=== PATIENT | female | born 1950 | race Caucasian/White ===

== ENCOUNTER 2017-02-13 15:32 | Outpatient (CLI) | payer OTHER ==
--- NOTE | 2017-02-14 17:35 | Mammography Report ---
DIGITAL SCREENING MAMMOGRAM: 02/13/2017 CLINICAL INDICATION: A 66-year-old with family history of breast cancer, history of benign right jennifer ast biopsy for screening. COMPARISON: 01/2016, 12/2014, 04/2013, 04/2012, 10/2010, 08/2009, 02/2008, 02/2007. TECHNIQUE: Routine CC and MLO projections were obtained of the breasts as well as bilateral laterall y exaggerated craniocaudal views. FINDINGS: The breasts demonstrate heterogeneously dense fibroglandular parenchyma bilaterally. Post operative changes in the right breast are stable. Coarse and punctate, typically benign calcificatio ns are present. No suspicious masses, clustered microcalcifications, or regions of architectural dis tortion are identified. IMPRESSION: BENIGN FINDINGS. RECOMMENDATION: Routine annual screening unless otherwise clinically indicated. BI-RADS category 2, benign findings. STANDARD QUALIFYING STATEMENTS 1. This examination was reviewed with the aid of Computer-Aided Detection (CAD). 2. A negative or benign imaging report should not delay biopsy if clinically suspicious findings are present. Consider surgical consultation if warranted. More than 5% of cancers are not identified by i maging. 3. Dense breasts may obscure an underlying neoplasm. JOB #: [id number] EXT JOB #:[id number]
== END 2017-02-13 15:33 | disposition home or self-care (01) ==
LOC: DI.S 15:32
PROVIDERS: ATTEND Physician Assistant
DX: Z12.31 Encounter for screening mammogram for malignant neoplasm of breast (principal); Z80.3 Family history of malignant neoplasm of breast
CPT/HCPCS: 77067

== ENCOUNTER 2017-02-18 14:47 | Outpatient (CLI) | payer OTHER ==
--- NOTE | 2017-02-18 16:14 | CT Report ---
CT OF THE ABDOMEN AND PELVIS WITHOUT CONTRAST: 02/18/2017 CLINICAL INDICATION: Generalized swelling, blood in stool, bloating. TECHNIQUE: Axial CT images of the abdomen and pelvis were obtained without oral or intravenous contra st. No previous CT is available for comparison. FINDINGS: Limited evaluation of the lung bases is unremarkable. ABDOMEN: Allowing for the lack of contrast, the liver, spleen, pancreas, kidneys and adrenal glands a ppear unremarkable. The gallbladder is not dilated. No bowel dilatation, free gas, or free fluid is p resent. No abdominal adenopathy is appreciated. PELVIS: The appendix is seen in the right lower quadrant, and is normal in caliber. No pelvic adenopa thy or free fluid is present. The pelvic organs appear unremarkable. The osseous structures demonstrate degenerative changes. IMPRESSION: NO EVIDENT ETIOLOGY FOR PATIENT'S SYMPTOMS ON THIS NONCONTRAST EXAMINATION. In accordance with CT protocol optimization, one or more of the following dose reduction techniques w ere utilized for this exam: automated exposure control, adjustment of mA and/or KV based on patient size, or use of iterative reconstructive technique. JOB #: [id number] EXT JOB #:[id number]
== END 2017-02-18 14:48 | disposition home or self-care (01) ==
LOC: DI 14:47
PROVIDERS: ATTEND Nurse Practitioner Family
DX: R10.9 Unspecified abdominal pain (principal); K92.1 Melena; R19.07 Generalized intra-abdominal and pelvic swelling, mass and lump
CPT/HCPCS: 74176

== ENCOUNTER 2017-02-19 13:45 | Outpatient (CLI) | payer OTHER | END 2017-02-19 13:46 | disposition home or self-care (01) | LOC: RT.S 13:45 | PROVIDERS: ATTEND Physician Assistant | DX: R00.2 Palpitations (principal) | CPT/HCPCS: 93005 ==

== ENCOUNTER 2017-06-05 13:22 | Day surgery (SDC) | payer MEDICARE ==
[2017-06-05] MEDS ORDERED: LACTATED RINGERS 1,000 ML IV ONE (13:55)
[2017-06-05] MEDS ORDERED: fentaNYL 100 MCG/2 ML VIAL IVP ONE (14:44)
[2017-06-05] MEDS ORDERED: ONDANSETRON 4 MG/2 ML VIAL IVP ONE (14:44)
[2017-06-05] MEDS ORDERED: MIDAZOLAM 2 MG/2 ML VIAL IVP ONE (14:44)
[2017-06-05 15:27] VITALS: BP 113/63
== END 2017-06-05 13:23 | disposition home or self-care (01) ==
LOC: SDS 13:22
PROVIDERS: ATTEND Internal Medicine Gastroenterology
PROC: 0DBP8ZX Excision of Rectum, Via Natural or Artificial Opening Endoscopic, Diagnostic (ICD-10-PCS; principal; 2017-06-05 14:30)
DX: K51.20 Ulcerative (chronic) proctitis without complications (principal); Z86.010 Personal history of colon polyps; R19.7 Diarrhea, unspecified; R14.0 Abdominal distension (gaseous); Z80.0 Family history of malignant neoplasm of digestive organs
CPT/HCPCS: 45380; 88305; J7120

== ENCOUNTER 2017-06-19 13:26 | Outpatient (CLI) | payer MEDICARE ==
--- NOTE | 2017-06-20 10:14 | DEXA Report ---
DEXA: 06/19/2017 CLINICAL INDICATION: Osteopenia. TECHNIQUE: Dual energy x-ray absorptiometry (DXA) was performed on a [employer] system. Regions measured are the AP spine, femoral neck, and, if needed, forearm. COMPARISON: None. In accordance with the International Society for Clinical Densitometry (ISCD) guidelines, data from previous exams may be reanalyzed using current recommendations and techniques. This is done to allow a more accurate basis for comparison with the current study. FINDINGS LUMBAR SPINE DATA: REGION BMD (g/cm/cm) T-SCORE Z-SCORE L1 1.131 0.0 1.8 L2 1.178 -0.2 1.7 L3 1.150 -0.4 1.4 L4 1.198 0.0 1.8 TOTAL 1.170 -0.1 1.8 NOTE: All evaluable vertebrae are used for classification. HIP DATA: REGION BMD (g/cm/cm) T-SCORE Z-SCORE Neck 0.864 -1.2 0.5 TOTAL 0.987 -0.2 1.3 NOTE: The femoral neck or total proximal femur, whichever is lowest, is used for classification. IMPRESSION THE WHO CLASSIFICATION BASED ON THE INTERNATIONAL REFERENCE STANDARD: OSTEOPENIA (REFERENCE LEFT FEMORAL NECK). FRACTURE RISK: INCREASED. RECOMMENDATION: Patients with diagnosis of osteoporosis or osteopenia should have regular bone mineral density assessment. For those eligible for Medicare, routine testing is allowed once every 2 years. Testing frequency can be increased for patients who have rapidly progressing disease or for those who are receiving medical therapy to restore bone mass. COMMENT: World Health Organization (WHO) definitions for osteoporosis and osteopenia: NORMAL BMD: T-score at -1.0 or higher, fracture risk is low. OSTEOPENIA BMD: T-score between -1.0 and -2.5, fracture risk is increased. OSTEOPOROSIS BMD: T-score at -2.5 or lower, fracture risk high. National Osteoporosis Foundation recommends: 1. Obtain adequate dietary calcium (at least 1200 mg per day) and vitamin D (400 -800 international units per day). 2. Participate, as appropriate, in regular weightbearing and muscle- strengthening exercise. 3. Avoid tobacco use and reduce alcohol and caffeine intake. 4. For more detailed information see the website at www.NOF.org. MTDD
== END 2017-06-19 13:27 | disposition home or self-care (01) ==
LOC: DI 13:26
PROVIDERS: ATTEND Physician Assistant
DX: M85.88 Other specified disorders of bone density and structure, other site (principal)
CPT/HCPCS: 77080

== ENCOUNTER 2017-07-01 12:59 | Outpatient (CLI) | payer MEDICARE ==
[~2017-07-01 12:59] MED LIST: GADOBUTROL 7.5 MMOL/7.5 ML VIAL ONE
[2017-07-01 13:25] LABS: CREATININE 0.7 mg/dL (0.4-1.0)
[2017-07-01] MEDS ORDERED: GADOBUTROL 7.5 MMOL/7.5 ML VIAL IVP ONE (14:36)
--- NOTE | 2017-07-03 15:07 | MRI Report ---
MR BILATERAL BREASTS WITH AND WITHOUT CONTRAST: 07/01/2017 CLINICAL INDICATION: Strong family history of breast cancer, with multiple first degree relatives with breast cancer, history of benign biopsy. COMPARISON: MRI 12/16/2015, MRI 11/02/2014, mammogram 02/13/2017. TECHNIQUE: Using a dedicated breast coil, axial precontrast STIR, T1, dynamic postcontrast axial 3-D images, axial 3-D high resolution images, and postcontrast diffusion weighted images were obtained. Six mL of Gadavist was administered intravenously. Post-processing with dynamic contrast enhancement analysis and multiplanar reformations were performed with Clio. FINDINGS: The breasts again demonstrate heterogeneously dense glandular tissue. Minimal scattered background enhancement is again noted. RIGHT BREAST: Post-biopsy changes in the upper inner quadrant are stable. No suspicious mass, non-mass like enhancement, architectural distortion, or skin thickening is identified. No pathologically enlarged lymph nodes are seen. LEFT BREAST: No suspicious mass, non-mass like enhancement, architectural distortion, or skin thickening is identified. No pathologically enlarged lymph nodes are identified. IMPRESSION: Benign findings. RECOMMENDATIONS: Continued annual screening mammography and surveillance MRI alternating every 6 months. BI RADS category 2. Benign findings. The patient has been instructed to obtain results from Galina Arellano PA-C in 5 business days. COMMENT: Breast MRI is a highly sensitive examination, and has a cancer detection threshold down to approximately 5 mm; however, it only has moderate specificity. Although breast MRI has a high negative predictive value, appropriate clinical and mammographic followup are always necessary. MRI may miss less angiogenic tumors; therefore, it should not be used to avoid a biopsy which is otherwise clinically indicated. Normal appearing lymph nodes may contain microscopic tumor. Due to prone positioning, the described location of findings may differ from other modalities. TD: 07/02/2017 16:17 FARTUN
== END 2017-07-01 13:00 | disposition home or self-care (01) ==
LOC: LAB 12:59
PROVIDERS: ATTEND Physician Assistant
DX: Z80.3 Family history of malignant neoplasm of breast (principal)
CPT/HCPCS: 36415; 82565; A9585; C8908; 77059

== ENCOUNTER 2017-11-28 15:54 | Outpatient (CLI) | payer MEDICARE ==
--- NOTE | 2017-11-29 10:10 | XRAY Report ---
RIGHT KNEE X-RAY: 11/28/2017 COMPARISON: No comparison. INDICATION: Right knee pain. TECHNIQUE: 3 views. FINDINGS: Normal alignment. No evidence of acute fracture. No effusion. No degenerative changes. IMPRESSION: NEGATIVE KNEE. TD: 11/29/2017 10:10 MTDD
== END 2017-11-28 15:55 | disposition home or self-care (01) ==
LOC: DI.S 15:54
PROVIDERS: ATTEND Nurse Practitioner Family
DX: M25.561 Pain in right knee (principal); M25.461 Effusion, right knee

== ENCOUNTER 2018-10-31 12:21 | Outpatient (CLI) | payer OTHER ==
[2018-10-31] MEDS ORDERED: GADOBUTROL 10 MMOL/10 ML VIAL ONE (12:33)
[2018-10-31] MEDS ORDERED: GADOBUTROL 10 MMOL/10 ML VIAL IVP ONE (13:36)
--- NOTE | 2018-11-03 12:13 | MRI Report ---
Reason: SCREENING FOR BREAST CA Procedure Date: 10/31/2018 Accession Number: [id number] / [id number] Procedure: MRI - Breast W/WO Cont CPT Code: 12170 FULL RESULT: EXAM: Breast W/WO Cont DATE: 10/31/2018 1:25 PM CLINICAL HISTORY: High-risk breast cancer screening. Patient family history of breast cancer. Both sisters and a niece. COMPARISON: 07/01/2017 and 12/16/2015. TECHNIQUE: Axial - precontrast STIR Axial - postcontrast sequential 1 minute three-dimensional (x 5) Axial - high-resolution volumetric images. Axial -diffusion weighted imaging CONTRAST USED: 6 mL Gadavist (gadolinium). POSTPROCESSING: Subtraction dynamic/curve analysis and multiplanar reformations with CAD stream FINDINGS: Minimal scattered background enhancement is again noted bilaterally. RIGHT BREAST: Post-biopsy changes in the upper inner quadrant are redemonstrated. No suspicious mass, non- mass like enhancement, architectural distortion, or skin thickening is identified. No pathologically enlarged lymph nodes are seen. LEFT BREAST: No suspicious mass, non-mass like enhancement, architectural distortion, or skin thickening is identified. No pathologically enlarged lymph nodes are identified. IMPRESSION: Benign findings. RECOMMENDATIONS: Continued annual screening mammography and surveillance MRI alternating every 6 months. BIRADS category 2. Benign findings. COMMENT: The literature indicates that a negative dynamic breast MRI has a high sensitivity and specificity for the detection of invasive carcinoma (to a threshold of 5 mm). MRI is not reliably sensitive for detecting ductal carcinoma in situ or large invasive neoplasms with only minimal enhancement (i.e. mucinous carcinoma). Normal-appearing lymph nodes on MRI may contain microscopic tumor. Appropriate clinical mammographic and sonographic followup should be performed if recommended. Negative MRI should not dissuade further evaluation of any suspicious mammographic calcifications and/or worrisome palpable masses.
== END 2018-10-31 12:22 | disposition home or self-care (01) ==
LOC: DI 12:21
PROVIDERS: ATTEND Physician Assistant
DX: Z12.31 Encounter for screening mammogram for malignant neoplasm of breast (principal); Z80.3 Family history of malignant neoplasm of breast
CPT/HCPCS: 77049; A9585

== ENCOUNTER 2019-05-19 13:29 | Outpatient (CLI) | payer OTHER ==
--- NOTE | 2019-05-19 14:24 | Mammography Report ---
Reason: SCREENING MAMMO Procedure Date: 05/19/2019 Accession Number: [id number] / [id number] Procedure: MGS - Screening Mammo Dig Bilat CPT Code: FULL RESULT: EXAM: Screening Mammo Dig Bilat DATE: 05/19/2019 2:03 PM CLINICAL HISTORY: Routine screening. History of right breast biopsy. TECHNIQUE: (B) - Bilateral CC and MLO views were obtained. COMPARISON: 02/13/2017, 02/14/2016, 12/22/2014, 05/20/2013 PARENCHYMAL PATTERN: (VD) - The breasts demonstrate extremely dense parenchyma bilaterally, limiting the sensitivity of mammography. FINDINGS: No significant interval change on the right. There are no suspicious masses, calcifications, or areas of distortion. On the left there is a possible area of developing architectural distortion in the posterior lateral breast seen on the CC projection only. No suspicious calcifications or dominant mass left breast. IMPRESSION: Incomplete examination. BI-RADS category 0. Needs CC spot compression and true lateral view left breast with possible ultrasound. Negative right breast. RECOMMENDATION: (ADDMAM) - Recommend additional mammographic views. Possible ultrasound depending on the additional mammographic imaging. BI-RADS CATEGORY: (0) - Incomplete Examination - need additional evaluation. STANDARD QUALIFYING STATEMENTS: 1. This examination was not reviewed with the aid of Computer-Aided Detection (CAD). 2. A negative or benign imaging report should not preclude biopsy if clinically suspicious findings are present. 3. Dense breasts may obscure an underlying neoplasm. 4. This examination was reviewed without the aid of 3D breast imaging (tomosynthesis).
== END 2019-05-19 13:30 | disposition home or self-care (01) ==
LOC: DI.S 13:29
DX: Z12.31 Encounter for screening mammogram for malignant neoplasm of breast (principal); R92.8 Other abnormal and inconclusive findings on diagnostic imaging of breast
CPT/HCPCS: 77067

== ENCOUNTER 2019-06-02 10:01 | Outpatient (CLI) | payer MEDICARE ==
--- NOTE | 2019-06-02 11:12 | Mammography Report ---
Reason: ABN MAMMO - LT SPEC VIEWS Procedure Date: 06/02/2019 Accession Number: [id number] / [id number] Procedure: VIOLETTA - Diag Special Views Dig LT CPT Code: Final Report FULL RESULT: EXAM: Diag Special Views Dig LT DATE: 06/02/2019 10:25 AM CLINICAL HISTORY: Recall from recent screening for possible left breast distortion single view. Family history breast cancer in sister age 38 and maternal aunt age 68. TECHNIQUE: (L) - Left CC and ML views were obtained. COMPARISON: 05/19/2019 through 11/10/2010. PARENCHYMAL PATTERN: (VD) - The breasts demonstrate extremely dense parenchyma bilaterally, limiting the sensitivity of mammography. FINDINGS: Left breast: One view possible distortion recalled from screening posterior lateral breast does not persist on additional views consistent with summation of normal tissues. Area returns to baseline appearance compared earlier mammograms. There are no suspicious masses, calcifications, or areas of distortion. IMPRESSION: Left breast: Finding recalled from screening consistent with summation of normal tissues. Negative examination. BI-RADS category 1. Recommend return to annual screening mammography. RECOMMENDATION: (ANNUAL) - Recommend routine annual screening mammography. BI-RADS CATEGORY: (1) - Negative. STANDARD QUALIFYING STATEMENTS: 1. This examination was not reviewed with the aid of Computer-Aided Detection (CAD). 2. A negative or benign imaging report should not preclude biopsy if clinically suspicious findings are present. 3. Dense breasts may obscure an underlying neoplasm. 4. This examination was reviewed with the aid of 3D breast imaging (tomosynthesis).
== END 2019-06-02 10:02 | disposition home or self-care (01) ==
LOC: DI 10:01
PROVIDERS: ATTEND Physician Assistant
DX: R92.8 Other abnormal and inconclusive findings on diagnostic imaging of breast (principal); Z80.3 Family history of malignant neoplasm of breast

== ENCOUNTER 2019-06-17 13:11 | Outpatient (CLI) | payer MEDICARE ==
--- NOTE | 2019-06-19 08:31 | XRAY Report ---
Reason: NECK PAIN Procedure Date: 06/17/2019 Accession Number: [id number] / [id number] Procedure: XRS - Cervical Spine 2 View CPT Code: Final Report FULL RESULT: EXAM: CERVICAL SPINE RADIOGRAPHY EXAM DATE: 06/17/2019 01:27 PM. CLINICAL HISTORY: NECK PAIN. COMPARISONS: None. TECHNIQUE: 3 views. FINDINGS: Alignment: Grade 1 C3 on C4 and C4 on C5 anterolisthesis. Loss of the normal cervical lordosis is noted. Bones: The cervical vertebral bodies and posterior elements are well visualized from the skull base through C7-T1. No fractures or bone lesions. Disks: Moderate C5-C6 disk narrowing. Facets: Facet arthropathy most severe at the left C3-C4 and C4-C5 levels. Soft Tissues: Normal. No prevertebral soft tissue swelling. The visualized lung apices are clear. IMPRESSION: 1. Grade 1 C3 on C4 and C4 on C5 anterolisthesis likely degenerative in origin. Loss of the normal cervical lordosis. 2. No acute fracture. 3. Multilevel degenerative disk disease and facet arthropathy. See above. RADIA
== END 2019-06-17 13:12 | disposition home or self-care (01) ==
LOC: DI.S 13:11
PROVIDERS: ATTEND Nurse Practitioner Family
DX: M50.322 Other cervical disc degeneration at C5-C6 level (principal); M47.812 Spondylosis without myelopathy or radiculopathy, cervical region; M43.12 Spondylolisthesis, cervical region
CPT/HCPCS: 72040

== ENCOUNTER 2019-06-24 16:31 | Outpatient (CLI) | payer MEDICARE ==
--- NOTE | 2019-06-25 12:15 | MRI Report ---
Reason: CERVICALGIA Procedure Date: 06/24/2019 Accession Number: [id number] / [id number] Procedure: MRI - Cervical Spine W/O CPT Code: Final Report FULL RESULT: EXAM: MRI CERVICAL SPINE WITHOUT CONTRAST EXAM DATE: 06/24/2019 05:15 PM. CLINICAL HISTORY: Cervicalgia. Pain along the left side of the neck that moves into the left shoulder. COMPARISONS: CERVICAL SPINE 2 VIEW 06/17/2019 1:19 PM. TECHNIQUE: Multiplanar, multisequence T1-weighted and fluid-sensitive sequences of the cervical spine without contrast. Other: None. FINDINGS: Neurologic Structures: The visualized posterior fossa structures are unremarkable. No signal abnormality in the visualized spinal cord. The spinal canal is adequate. Alignment: Mild, 2 mm, retrolisthesis is seen at C5-C6. Mild, 2.5 mm, spondylolisthesis is seen at C7-T1. Bone Marrow: Moderate bone marrow edema is seen involving left C4-C5 facet processes. No abnormal joint space fluid is seen. Adjacent paraspinous edema is seen without a fluid collection. Mild bone marrow edema is seen involving bilateral C7-T1 facet processes. Interspace Levels/Facets: C1-C2: Unremarkable. C2-C3: Unremarkable. Mild left-sided degenerative facet change. C3-C4: Unremarkable. Mild degenerative facet change is seen bilaterally. Trace amount of fluid is seen in the left facet joint. C4-C5: Left-sided hypertrophic degenerative facet change is seen. Bone marrow and paraspinous edema is noted. Mild left foraminal stenosis. C5-C6: Mild loss of disk space height. Mild retrolisthesis. Minimal dorsal disk bulge. Left-sided degenerative uncovertebral change. Mild broad-based ventral disk bulge. Left moderate foraminal stenosis. C6-C7: Mild central dorsal disk bulge. No stenosis. C7-T1: Mild degenerative facet change is seen bilaterally. Mild spondylolisthesis. No stenosis. Musculature: Normal. No edema or fatty atrophy. Other: The paravertebral and prevertebral soft tissues are normal. IMPRESSION: 1. Normal appearance to the cervical spinal cord. 2. Bone marrow edema involving left C4-C5 and bilateral C7-T1 facet processes. Findings suggest degenerative etiology. Inflammatory/infectious process is considered less likely. 3. C4-C5: Left-sided degenerative facet change. Left mild foraminal stenosis. 4. C5-C6: Mild degenerative disk and left-sided degenerative uncovertebral change. Mild retrolisthesis. Left moderate foraminal stenosis. 5. C7-T1: Degenerative facet change with mild spondylolisthesis. No stenosis. RADIA
== END 2019-06-24 16:32 | disposition home or self-care (01) ==
LOC: DI 16:31
PROVIDERS: ATTEND Nurse Practitioner Family
DX: M47.812 Spondylosis without myelopathy or radiculopathy, cervical region (principal); M50.322 Other cervical disc degeneration at C5-C6 level; M48.02 Spinal stenosis, cervical region; M43.12 Spondylolisthesis, cervical region; M43.13 Spondylolisthesis, cervicothoracic region
CPT/HCPCS: 72141

== ENCOUNTER 2019-12-02 08:00 | Outpatient (CLI) | payer MEDICARE | END 2019-12-02 23:59 | disposition home or self-care (01) | LOC: LAB.R 08:00 | PROVIDERS: ATTEND Physician Assistant | DX: K30 Functional dyspepsia (principal); R19.7 Diarrhea, unspecified; K51.90 Ulcerative colitis, unspecified, without complications | CPT/HCPCS: 87045; 87046; 87493 ==

== ENCOUNTER 2019-12-02 15:35 | Outpatient (CLI) | payer MEDICARE ==
[2019-12-02 15:53] LABS: BASOPHILS % (AUTO) 0.3 %; EOSINOPHILS # (AUTO) 0.1 10^3/uL (0.0-0.7); EOSINOPHILS % (AUTO) 0.7 %; HGB - HEMOGLOBIN 14.3 g/dL (12.0-16.0); LYMPHOCYTES # (AUTO) 1.4 10^3/uL (1.5-3.5); MEAN CORPUSCULAR HEMOGLOBIN 32.9 pg (27.0-31.0); MEAN CORPUSCULAR HGB CONC 32.6 g/dL (32.0-36.0); MEAN CORPUSCULAR VOLUME 100.7 fL (81.0-99.0); MEAN PLATELET VOLUME 10.4 fL (7.9-10.8); MONOCYTES # (AUTO) 0.7 10^3/uL (0.0-1.0); NEUTROPHILS # (AUTO) 6.4 10^3/uL (1.5-6.6); NEUTROPHILS % (AUTO) 74.2 %; PLT - PLATELET COUNT 235 10^3/uL (130-450); RED BLOOD COUNT 4.35 10^6/uL (4.20-5.40); WHITE BLOOD COUNT 8.7 x10^3/uL (4.8-10.8)
[2019-12-02 16:25] LABS: ALBUMIN 4.3 g/dL (3.2-5.5); ALBUMIN/GLOBULIN RATIO 1.7 (1.0-2.2); ALKALINE PHOSPHATASE 42 IU/L (42-121); ALT ALANINE AMINOTRANSFERASE 21 IU/L (10-60); AST ASPARTATE AMINOTRANSFERASE 22 IU/L (10-42); BILIRUBIN,TOTAL 0.7 mg/dL (0.2-1.0); BUN - BLOOD UREA NITROGEN 15 mg/dL (6-20); CARBON DIOXIDE - CO2 26 mmol/L (21-32); CHLORIDE 99 mmol/L (101-111); CREATININE 0.9 mg/dL (0.4-1.0); GLUCOSE 91 mg/dL (70-100); SODIUM 135 mmol/L (135-145); TOTAL PROTEIN 6.9 g/dL (6.7-8.2)
[2019-12-02 16:26] LABS: CRP - C-REACTIVE PROTEIN < 1.0 mg/dL (0-1.0)
== END 2019-12-02 15:36 | disposition home or self-care (01) ==
LOC: LAB 15:35
PROVIDERS: ATTEND Physician Assistant
DX: K30 Functional dyspepsia (principal); R19.7 Diarrhea, unspecified; K51.90 Ulcerative colitis, unspecified, without complications
CPT/HCPCS: 36415; 80053; 85025; 86140; 87045; 87046; 87493

== ENCOUNTER 2020-01-06 15:42 | Outpatient (CLI) | payer MEDICARE | END 2020-01-06 15:43 | disposition home or self-care (01) | LOC: LAB.S 15:42 | PROVIDERS: ATTEND Physician Assistant | DX: K51.90 Ulcerative colitis, unspecified, without complications (principal) | CPT/HCPCS: 36415; 82607; 82746 ==

== ENCOUNTER 2020-05-18 15:44 | Outpatient (CLI) | payer MEDICARE ==
[2020-05-18] MEDS ORDERED: GADOBUTROL 10 MMOL/10 ML VIAL ONE (16:15)
[2020-05-18] MEDS ORDERED: GADOBUTROL 10 MMOL/10 ML VIAL IVP ONE (16:39)
--- NOTE | 2020-05-25 08:57 | MRI Report ---
BREAST MRI OF BOTH BREASTS: 05/18/2020 CLINICAL: Family history of breast cancer. Yearly Mammograms and MRI Breast exams since 2013. TECHNIQUE: The patient was placed prone in a dedicated breast imaging coil. Precontrast axial STIR and 3D FLASH without fat saturation sequences were obtained. Both before and after bolus injection of contrast, sequential 1-minute axial 3D FLASH with fat saturation sequences for 3 time points, with subtraction images and maximum intensity projections (MIPs) generated. Delayed sagittal FLASH images with fat s aturation were also obtained. Computer-aided detection, including computer algorithm analysis of MRI image data for lesion detectio n and characterization, pharmacokinetic analysis, with further physician review for interpretation, w as performed. COMPARISON: Mammograms from [facility] dated 05/19/2019, 06/02/2019, and 02/13/2017. MR racheal diaz from [facility] dated 10/31/2018 and 07/01/2017. FINDINGS: Image quality: Excellent. There is minimal symmetric background parenchymal enhancement. Right breast: Stable post-biopsy changes are again noted in the upper inner quadrant of the right br east. No significant mass or area of abnormal non-mass enhancement is identified in the right breast. There is no significant axillary lymphadenopathy. Left breast: No significant mass or area of abnormal non-mass enhancement is identified in the left breast. There is no significant axillary lymphadenopathy. Miscellaneous: The included portions of the anterior chest wall and upper abdomen demonstrate no acu te abnormality. IMPRESSION: BENIGN 1. No suspicious mass or abnormal non-mass enhancement in either breast. No significant axillary lymp hadenopathy. 2. Stable post-biopsy changes in the right breast. BIRADS 2. Recommend continued annual screening with mammography and breast MRI alternating every 6 mo nths. COMMENT: The imaging literature indicates that a negative contrast breast MRI examination has a high sensitivity and a moderate specificity for detecting and excluding invasive carcinomas to a detection threshold of 3-5 mm; nonetheless, appropriate clinical and mammographic follow-up are recommended. MRI is not sensitive for detecting DCIS (ductal carcinoma in situ) and may not detect large invasive neoplasms that show only minimal enhancement such as mucinous carcinoma. If there are suspicious leobardo cifications or clinically worrisome palpable masses, then biopsy should still be considered. Invasiv e neoplasms can be hidden by co-existent and benign enhancement caused by mastitis, hormone therapy e ffects, radiation therapy, , and recent biopsy or surgery. False positive examinations can occur in a number of circumstances, including breasts that have recently been subject to invasive pro cedures and those that contain atypical ductal hyperplasia, hormonally stimulated glandular tissue, f at necrosis, or radial scars. A 1 year screening mammogram is recommended. This exam was interpreted at Station ID: [id number]. Electronically Signed By: Morgan Bangura M.D. ar/:05/19/2020 09:55:50 ACR BI-RADS Category 2: Benign Finding(s) 3342F BI-RADS CATEGORY: (2) - 2 Mammo and MR [id number] 1 year screening LATERALITY: (B)
== END 2020-05-18 15:45 | disposition home or self-care (01) ==
LOC: DI 15:44
PROVIDERS: ATTEND Internal Medicine Hematology & Oncology
DX: Z12.39 Encounter for other screening for malignant neoplasm of breast (principal); Z80.3 Family history of malignant neoplasm of breast
CPT/HCPCS: 77049; A9585

== ENCOUNTER 2020-08-11 16:47 | Outpatient (CLI) | payer MEDICARE | END 2020-08-11 16:48 | disposition home or self-care (01) | LOC: COV 16:47 | PROVIDERS: ATTEND Internal Medicine | DX: Z01.812 Encounter for preprocedural laboratory examination (principal); Z20.822 Contact with and (suspected) exposure to COVID-19 ==

== ENCOUNTER 2020-11-07 07:00 | Outpatient (CLI) | payer MEDICARE ==
--- NOTE | 2020-11-07 17:11 | XRAY Report ---
PROCEDURE: Ankle 3 View RT INDICATIONS: RIGHT ANKLE PAIN TECHNIQUE: 3 views of the ankle were acquired. COMPARISON: None FINDINGS: Bones: No acute fractures or dislocations. Ankle mortise is normally aligned. No suspicious bony l esions. Soft tissues: No tibiotalar joint effusion. Achilles tendon appears normal. Moderate lateral malle olus soft tissue swelling. IMPRESSION: Moderate lateral malleolus soft tissue swelling without underlying fracture or dislocati on. If there is continued clinical concern for pathology or occult fracture, consider follow-up imaging w ith repeat radiographs in 10-14 days and possible advanced imaging (CT, MRI, bone scan) if symptoms p ersist. Reviewed by: Moe Kirby MD on 11/07/2020 4:10 PM AKVA Approved by: Moe Kirby MD on 11/07/2020 4:10 PM AKDT Station ID: [id number]
== END 2020-11-07 23:59 | disposition home or self-care (01) ==
LOC: DI.S 07:00
PROVIDERS: ATTEND Physician Assistant Medical
DX: M25.571 Pain in right ankle and joints of right foot (principal); R22.41 Localized swelling, mass and lump, right lower limb

== ENCOUNTER 2020-11-16 14:50 | Outpatient (CLI) | payer MEDICARE ==
--- NOTE | 2020-11-17 12:06 | Mammography Report ---
BILATERAL DIGITAL SCREENING MAMMOGRAM 3D/2D: 11/16/2020 CLINICAL: Family history of breast cancer. Comparison is made to exams dated: 06/02/2019 mammogram, 05/19/2019 mammogram, 02/13/2017 mammogram, and 02/14/2016 mammogram - [facility]. The tissue of both breasts is heterogeneousl y dense. This may lower the sensitivity of mammography. There is a possible asymmetry in the left breast at 12 o'clock posterior depth. This is more promine nt. There is possible architectural distortion associated with the asymmetry. No other significant masses, calcifications, or other findings are seen in either breast. IMPRESSION: INCOMPLETE: NEEDS ADDITIONAL IMAGING EVALUATION The possible asymmetry in the left breast is indeterminate. Additional views with possible ultrasoun d are recommended. This exam was interpreted at Station ID: [id number]. NOTE: For mammograms, a report in lay terms will be sent to the patient. Approximately 15% of breast malignancies will not be visualized mammographically. In the management of a palpable breast mass, a negative mammogram must not discourage biopsy of a clinically suspicious lesion. Electronically Signed By: Moe Kirby M.D. aty/:11/16/2020 17:53:55 ACR BI-RADS Category 0: Incomplete 3340F PARENCHYMAL PATTERN: (D) - The breast(s) demonstrate(s) heterogeneously dense fibroglandular sapphire garduno. BI-RADS CATEGORY: (0) - 0 Mammo and [place] [id number] Immediate follow-up LATERALITY: (L)
== END 2020-11-16 14:51 | disposition home or self-care (01) ==
LOC: DI.S 14:50
DX: Z12.31 Encounter for screening mammogram for malignant neoplasm of breast (principal); R92.8 Other abnormal and inconclusive findings on diagnostic imaging of breast; Z80.3 Family history of malignant neoplasm of breast

== ENCOUNTER 2020-12-13 10:56 | Outpatient (CLI) | payer MEDICARE ==
--- NOTE | 2020-12-15 07:04 | Ultrasound Report ---
LIMITED ULTRASOUND OF LEFT BREAST: 12/13/2020 CLINICAL: Patient returns today to evaluate a focal asymmetry in the left breast. Comparison is made to exams dated: 12/13/2020 mammogram, 11/16/2020 mammogram, 05/18/2020 breast MRI, 06/02/2019 mammogram, 05/19/2019 mammogram, and 10/31/2018 breast MRI - Merged with [facility]. Real-time ultrasound of the left breast 11-1 o'clock region was performed. Beltran scale images of the real-time examination were reviewed. No significant abnormalities were seen sonographically in the left breast. IMPRESSION: NEGATIVE There is no sonographic evidence of malignancy. There is no abnormality seen in the left breast to correspond with the mammography finding which is c onsistent with normal fibroglandular tissue. A 1 year screening mammogram is recommended. Findings and recommendations were conveyed to the patient during today's evaluation. This exam was interpreted at Station ID: [id number]. Electronically Signed By: Moe Kirby M.D. aty/:12/13/2020 14:19:45 Ultrasound BI-RADS: 1 Negative BI-RADS CATEGORY: (1) - 1 RECOMMENDATION: (ANNUAL) - Recommend routine annual screening mammography. [id number] 1 year screening LATERALITY: (B)
--- NOTE | 2020-12-15 07:04 | Mammography Report ---
UNILATERAL LEFT DIGITAL DIAGNOSTIC MAMMOGRAM 3D/2D: 12/13/2020 CLINICAL: Patient returns today to evaluate a focal asymmetry in the left breast. Comparison is made to exams dated: 11/16/2020 mammogram, 05/18/2020 breast MRI, 06/02/2019 mammogram, 05/19/2019 mammogram, 10/31/2018 breast MRI, and 07/01/2017 breast MRI - [facility] . The tissue of left breast is heterogeneously dense. This may lower the sensitivity of mammography. There is a possible asymmetry in the left breast at 12 o'clock posterior depth. This is less promine nt and decreased in size. The previously described possible architectural distortion associated with the asymmetry is no longer visualized. No other significant masses or calcifications are seen in the breast. IMPRESSION: INCOMPLETE: NEEDS ADDITIONAL IMAGING EVALUATION The possible asymmetry in the left breast most likely is fibroglandular tissue but remains indetermin ate. An ultrasound is recommended for further evaluation and is scheduled to immediately follow this exami nation. This exam was interpreted at Station ID: [id number]. NOTE: For mammograms, a report in lay terms will be sent to the patient. Approximately 15% of breast malignancies will not be visualized mammographically. In the management of a palpable breast mass, a negative mammogram must not discourage biopsy of a clinically suspicious lesion. Electronically Signed By: Moe Kirby M.D. aty/:12/13/2020 14:18:37 ACR BI-RADS Category 0: Incomplete 3340F PARENCHYMAL PATTERN: (D) - The breast(s) demonstrate(s) heterogeneously dense fibroglandular sapphire garduno. BI-RADS CATEGORY: (0) - 0 Ultrasound [id number] Immediate follow-up LATERALITY: (L)
== END 2020-12-13 10:57 | disposition home or self-care (01) ==
LOC: DI 10:56
PROVIDERS: ATTEND Internal Medicine
DX: R92.8 Other abnormal and inconclusive findings on diagnostic imaging of breast (principal)

== ENCOUNTER 2021-04-19 16:48 | Outpatient (CLI) | payer MEDICARE ==
[2021-04-19 20:03] LABS: BASOPHILS % (AUTO) 0.7 %; EOSINOPHILS # (AUTO) 0.1 10^3/uL (0.0-0.7); EOSINOPHILS % (AUTO) 1.8 %; HCT - HEMATOCRIT 44.5 % (37.0-47.0); HGB - HEMOGLOBIN 14.2 g/dL (12.0-16.0); LYMPHOCYTES # (AUTO) 1.5 10^3/uL (1.5-3.5); LYMPHOCYTES % (AUTO) 24.7 %; MEAN CORPUSCULAR HEMOGLOBIN 32.5 pg (27.0-31.0); MEAN CORPUSCULAR HGB CONC 31.9 g/dL (32.0-36.0); MEAN CORPUSCULAR VOLUME 101.8 fL (81.0-99.0); MEAN PLATELET VOLUME 11.2 fL (7.9-10.8); MONOCYTES # (AUTO) 0.4 10^3/uL (0.0-1.0); MONOCYTES % (AUTO) 7.2 %; NEUTROPHILS % (AUTO) 65.4 %; PLT - PLATELET COUNT 235 10^3/uL (130-450); RED BLOOD COUNT 4.37 10^6/uL (4.20-5.40); RED CELL DISTRIBUTION WIDTH 11.8 % (12.0-15.0); WHITE BLOOD COUNT 6.1 x10^3/uL (4.8-10.8)
[2021-04-19 20:13] LABS: ALBUMIN 4.2 g/dL (3.2-5.5); ALBUMIN/GLOBULIN RATIO 1.4 (1.0-2.2); BILIRUBIN,TOTAL 0.7 mg/dL (0.2-1.0); CALCIUM 9.2 mg/dL (8.5-10.3); CREATININE 0.7 mg/dL (0.4-1.0); POTASSIUM 3.9 mmol/L (3.5-5.0); TOTAL PROTEIN 7.2 g/dL (6.7-8.2)
[2021-04-19 20:31] LABS: THYROID STIMULATING HORMONE 1.18 uIU/mL (0.34-5.60)
== END 2021-04-19 23:59 | disposition home or self-care (01) ==
LOC: LAB.S 16:48
PROVIDERS: ATTEND Physician Assistant Medical
DX: R00.2 Palpitations (principal)
CPT/HCPCS: 36415; 80053; 83735; 84443; 85025

== ENCOUNTER 2021-10-24 11:46 | Outpatient (CLI) | payer MEDICARE ==
[2021-10-24 15:21] LABS: BASOPHILS % (AUTO) 0.8 %; EOSINOPHILS # (AUTO) 0.2 10^3/uL (0.0-0.7); EOSINOPHILS % (AUTO) 4.6 %; HCT - HEMATOCRIT 44.9 % (37.0-47.0); HGB - HEMOGLOBIN 14.7 g/dL (12.0-16.0); LYMPHOCYTES # (AUTO) 1.7 10^3/uL (1.5-3.5); LYMPHOCYTES % (AUTO) 33.5 %; MEAN CORPUSCULAR HEMOGLOBIN 32.4 pg (27.0-31.0); MEAN CORPUSCULAR HGB CONC 32.7 g/dL (32.0-36.0); MEAN CORPUSCULAR VOLUME 98.9 fL (81.0-99.0); MEAN PLATELET VOLUME 11.3 fL (7.9-10.8); MONOCYTES # (AUTO) 0.4 10^3/uL (0.0-1.0); MONOCYTES % (AUTO) 7.8 %; NEUTROPHILS # (AUTO) 2.7 10^3/uL (1.5-6.6); NEUTROPHILS % (AUTO) 53.1 %; PLT - PLATELET COUNT 232 10^3/uL (130-450); RED BLOOD COUNT 4.54 10^6/uL (4.20-5.40); RED CELL DISTRIBUTION WIDTH 11.8 % (12.0-15.0)
[2021-10-24 16:03] LABS: ALBUMIN 4.2 g/dL (3.2-5.5); ALBUMIN/GLOBULIN RATIO 1.5 (1.0-2.2); ALKALINE PHOSPHATASE 56 IU/L (42-121); ALT ALANINE AMINOTRANSFERASE 32 IU/L (10-60); AST ASPARTATE AMINOTRANSFERASE 30 IU/L (10-42); BILIRUBIN,TOTAL 0.7 mg/dL (0.2-1.0); BUN - BLOOD UREA NITROGEN 11 mg/dL (6-20); CALCIUM 9.5 mg/dL (8.5-10.3); CARBON DIOXIDE - CO2 27 mmol/L (21-32); CHLORIDE 99 mmol/L (101-111); CHOL/HDL RATIO 3.1 (<4.4); CHOLESTEROL 181 mg/dL; CREATININE 0.6 mg/dL (0.4-1.0); GFR - MDRD 98 (>89); GLUCOSE 85 mg/dL (70-100); HDL CHOLESTEROL 59 mg/dL; LDL CHOLESTEROL,CALCULATED 100 mg/dL; LDL/HDL RATIO 1.7 (<4.4); POTASSIUM 4.1 mmol/L (3.5-5.0); SODIUM 136 mmol/L (135-145); TRIGLYCERIDES 110 mg/dL; VLDL CHOLESTEROL 22 mg/dL
[2021-10-24 16:09] LABS: THYROID STIMULATING HORMONE 2.73 uIU/mL (0.34-5.60)
== END 2021-10-24 11:47 | disposition home or self-care (01) ==
LOC: LAB.S 11:46
PROVIDERS: ATTEND Internal Medicine
DX: H93.19 Tinnitus, unspecified ear (principal); Z13.6 Encounter for screening for cardiovascular disorders; Z79.899 Other long term (current) drug therapy; R00.2 Palpitations; Z84.89 Family history of other specified conditions; R20.2 Paresthesia of skin; E78.5 Hyperlipidemia, unspecified
CPT/HCPCS: 36415; 80053; 80061; 82607; 83721; 84443; 85025

== ENCOUNTER 2021-11-30 13:12 | Outpatient (CLI) | payer MEDICARE ==
[2021-11-30 14:32] LABS: CREATININE 0.7 mg/dL (0.4-1.0)
[2021-11-30] MEDS ORDERED: GADOBUTROL 7.5 MMOL/7.5 ML VIAL ONE (14:46)
--- NOTE | 2021-11-30 16:36 | MRI Report ---
PROCEDURE: Brain W/WO INDICATIONS: PULSATILE TINNITUS CONTRAST: IV CONTRAST: Gadavist ml: 5.9 TECHNIQUE: Noncontrast axial T1 spin echo, axial T2 fast spin echo, sagittal and axial FLAIR, coronal T2 fast sp in echo, axial gradient echo, axial diffusion and ADC through the brain. After the administration of contrast, axial and coronal T1 spin echo with fat saturation through the brain. COMPARISON: None. FINDINGS: Image quality: Excellent. CSF spaces: Basal cisterns are patent. No extra-axial fluid collections. Ventricles are normal in size and shape. Brain: No midline shift. No intracranial bleeds or masses. No abnormal intracranial enhancement. There is cerebral volume loss for age. There is mild periventricular white matter chronic small vess el ischemic change. The brainstem appears normal. Diffusion-weighted images demonstrate no acute is chemic insults. No chronic ischemic insults. Normal intravascular flow voids are present. Skull and face: Calvarial marrow is normal in signal. Orbits appear normal. Sinuses: Retention cyst within the left posterior maxillary sinus. Sinuses and mastoids otherwise ap pear clear. IMPRESSION: 1. Mild volume loss. Minimal small vessel ischemic disease. 2. No explanation for pulsatile tinnitus. Reviewed by: Lolly Rich MD on 11/30/2021 4:35 PM PDT Approved by: Lolly Rich MD on 11/30/2021 4:35 PM PDT Station ID: [id number]
--- NOTE | 2021-11-30 16:38 | MRI Report ---
PROCEDURE: Angio Brain W/O (MRA) INDICATIONS: PULSATILE TINNITUS TECHNIQUE: Noncontrast axial 3-D [id number] MR angiogram, with 3-dimensional maximum intensity projection (M IP) reformats of the internal carotid arteries and posterior circulation then performed. COMPARISON: Brain MRI dated 11/30/2021 FINDINGS: Image quality: Excellent. Anterior circulation: Intracranial internal carotid arteries demonstrate normal size and intralumina l flow signal. The flow within the paired anterior cerebral arteries is normal and symmetric. The f low within the middle cerebral arteries is normal and symmetric. The anterior communicating artery i s seen. No stenoses, occlusions, or aneurysms. Posterior circulation: Visualized portions of the vertebral arteries demonstrate normal caliber, and join to form a normal appearing basilar artery. The flow within the posterior cerebral arteries is normal and symmetric. No stenoses, occlusions, or aneurysms. IMPRESSION: 1. Negative MR angiography of the head. No explanation for pulsatile tinnitus. Reviewed by: Lolly Rich MD on 11/30/2021 4:37 PM PDT Approved by: Lolly Rich MD on 11/30/2021 4:37 PM PDT Station ID: [id number]
--- NOTE | 2021-11-30 16:54 | MRI Report ---
PROCEDURE: Angio Neck W/WO (MRA) INDICATIONS: PULSATILE TINNITUS CONTRAST: IV CONTRAST: Gadavist ml: 5.9 TECHNIQUE: Axial and sagittal balanced GE through the neck. Coronal dynamic MRA after the administration of con trast in the arterial and venous phases, with rotating 3-dimensional maximum intensity projection (IA P) reformats constructed from subtraction images. COMPARISON: None. FINDINGS: Image quality: Excellent. Carotid system: Great vessels demonstrate a conventional anatomy as they arise from the aortic arch. The origins of the common carotid arteries appear normal. The calibers and courses of the common c arotid arteries are likewise normal. The carotid bifurcations appear normal bilaterally. The chief of internal medicine al carotid arteries are widely patent up to the [place]. Posterior circulation: Origin of the right vertebral artery is poorly visualized cannot be evaluated. Well visualized portions of the right vertebral artery is fully patent. Left vertebral artery is wel l visualized throughout its entire course. Left vertebral artery is fully patent. The more superior p ortions of the vertebral arteries demonstrate normal course and caliber. Vertebral arteries join to form a normal appearing basilar artery. Miscellaneous: Subclavian arteries are patent throughout. Pre-contrast images through the neck demo nstrate no soft tissue abnormalities. IMPRESSION: 1. Internal carotid artery is fully patent. 2. Left vertebral artery is fully patent. 3. Well visualized portions of the right vertebral artery is fully patent. Origin of the right verteb ral artery is poorly visualized and cannot be evaluated. 4. No explanation for pulsatile tinnitus identified. Reviewed by: Daisha Lamb MD, PhD on 11/30/2021 4:53 PM PDT Approved by: Daisha Lamb MD, PhD on 11/30/2021 4:53 PM PDT Station ID: [id number]
[2021-11-30] MEDS ORDERED: GADOBUTROL 7.5 MMOL/7.5 ML VIAL IVP ONE (16:55)
== END 2021-11-30 13:13 | disposition home or self-care (01) ==
LOC: DI 13:12
PROVIDERS: ATTEND Internal Medicine
DX: H93.A9 Pulsatile tinnitus, unspecified ear (principal); Z79.899 Other long term (current) drug therapy
CPT/HCPCS: 36415; 82565

== ENCOUNTER 2022-02-05 15:00 | Outpatient (CLI) | payer MEDICARE ==
--- NOTE | 2022-02-13 08:47 | Mammography Report ---
BILATERAL DIGITAL SCREENING MAMMOGRAM 3D/2D: 02/05/2022 CLINICAL: Routine screening. Family history of breast cancer. Comparison is made to exams dated: 02/05/2022 mammogram, 11/16/2020 mammogram, 06/02/2019 mammogram, a nd 02/13/2017 mammogram - [facility]. The tissue of both breasts is heterogeneously dense. This may lower the sensitivity of mammography. No significant masses, calcifications, or other findings are seen in either breast. There has been no significant interval change. IMPRESSION: NEGATIVE There is no mammographic evidence of malignancy. A 1 year screening mammogram is recommended. This exam was interpreted at Station ID: [id number]. NOTE: For mammograms, a report in lay terms will be sent to the patient. Approximately 15% of breast malignancies will not be visualized mammographically. In the management of a palpable breast mass, a negative mammogram must not discourage biopsy of a clinically suspicious lesion. Electronically Signed By: Thuan mcwilliams/tony:02/12/2022 15:08:33 ACR BI-RADS Category 1: Negative 3341F PARENCHYMAL PATTERN: (D) - The breast(s) demonstrate(s) heterogeneously dense fibroglandular paraidan garduno. BI-RADS CATEGORY: (1) - 1 RECOMMENDATION: (ANNUAL) - Recommend routine annual screening mammography. [id number] 1 year screening LATERALITY: (B)
== END 2022-02-05 15:01 | disposition home or self-care (01) ==
LOC: DI.S 15:00
DX: Z12.31 Encounter for screening mammogram for malignant neoplasm of breast (principal); Z80.3 Family history of malignant neoplasm of breast

== ENCOUNTER 2022-11-15 16:45 | Outpatient (CLI) | payer MEDICARE ==
[2022-11-15 17:36] LABS: ALBUMIN 4.5 g/dL (3.2-5.5); ALBUMIN/GLOBULIN RATIO 1.7 (1.0-2.2); ALKALINE PHOSPHATASE 51 IU/L (42-121); ALT ALANINE AMINOTRANSFERASE 22 IU/L (10-60); AST ASPARTATE AMINOTRANSFERASE 25 IU/L (10-42); BILIRUBIN,TOTAL 0.7 mg/dL (0.2-1.0); BUN - BLOOD UREA NITROGEN 17 mg/dL (6-20); CALCIUM 9.3 mg/dL (8.5-10.3); CARBON DIOXIDE - CO2 27 mmol/L (21-32); CHLORIDE 101 mmol/L (101-111); CREATININE 0.6 mg/dL (0.4-1.0); GFR - MDRD 98 (>89); GLUCOSE 92 mg/dL (70-100); POTASSIUM 4.1 mmol/L (3.5-5.0); SODIUM 138 mmol/L (135-145); TOTAL PROTEIN 7.2 g/dL (6.7-8.2)
[2022-11-15 17:41] LABS: CRP - C-REACTIVE PROTEIN < 1.0 mg/dL (0-1.0)
[2022-11-15 19:03] LABS: RHEUMATOID FACTOR NEGATIVE (Negative)
[2022-11-17 14:08] LABS: ANTINUCLEAR ANTIBODIES IFA Negative (.)
[2022-11-18 00:06] LABS: CYCLIC CITRULLINATED PEP IGG/A 5 units (0-19)
== END 2022-11-15 16:46 | disposition home or self-care (01) ==
LOC: LAB 16:45
PROVIDERS: ATTEND Internal Medicine Rheumatology
DX: M25.50 Pain in unspecified joint (principal)
CPT/HCPCS: 36415; 80053; 85651; 86038; 86140; 86200; 86430

== ENCOUNTER 2022-11-22 13:40 | Outpatient (CLI) | payer MEDICARE ==
--- NOTE | 2022-11-23 10:02 | XRAY Report ---
PROCEDURE: Knee 2 View RT INDICATIONS: RIGHT KNEE PAIN TECHNIQUE: 2 views of the right knee(s) were acquired. COMPARISON: None. FINDINGS: Bones: No fractures or dislocations. No suspicious bony lesions. Nomx-ty-wvzoarxj tricompartmenta l knee joint degeneration. Soft tissues: Small knee joint effusion. No suspicious soft tissue calcifications or masses. IMPRESSION: 1. Nfwa-of-cxfywolh degenerative joint disease. 2. Small knee joint effusion. Reviewed by: Misael Tineo MD on 11/23/2022 10:01 AM PDT Approved by: Misael Tineo MD on 11/23/2022 10:01 AM PDT Station ID: [id number]
--- NOTE | 2022-11-23 14:45 | XRAY Report ---
PROCEDURE: Hand 2 View BILAT INDICATIONS: BILATERAL HAND PAIN TECHNIQUE: 2 views of each hand acquired. COMPARISON: X-ray has, 03/06/2021. FINDINGS: Bones: No fractures or dislocations. No suspicious bony lesions. Arthritic changes are present in w rist and hands bilaterally, involving radiocarpal joints, triscaphe joints, first carpal metacarpal j oints, multiple metacarpophalangeal joints and multiple interphalangeal joints. Periarticular bony e rosions and soft tissue swelling are present, most pronounced at the right fifth proximal phalanx. Soft tissues: No suspicious soft tissue calcifications or masses. IMPRESSION: Moderate arthritic changes bilaterally. Presence of periarticular bony erosions and soft tissue swell ing suggesting inflammatory arthritis, such as erosive OA. Please correlate with serum markers. Reviewed by: Misael Tineo MD on 11/23/2022 2:43 PM PDT Approved by: Misael Tineo MD on 11/23/2022 2:43 PM PDT Station ID: [id number]
== END 2022-11-22 13:41 | disposition home or self-care (01) ==
LOC: DI.S 13:40
PROVIDERS: ATTEND Internal Medicine Rheumatology
DX: M17.11 Unilateral primary osteoarthritis, right knee (principal); M25.461 Effusion, right knee; M19.041 Primary osteoarthritis, right hand; M19.042 Primary osteoarthritis, left hand

== ENCOUNTER 2022-12-27 11:31 | Outpatient (CLI) | payer MEDICARE ==
[2022-12-27 14:42] LABS: BASOPHILS % (AUTO) 0.8 %; EOSINOPHILS # (AUTO) 0.1 10^3/uL (0.0-0.7); HCT - HEMATOCRIT 43.4 % (37.0-47.0); LYMPHOCYTES # (AUTO) 1.8 10^3/uL (1.5-3.5); LYMPHOCYTES % (AUTO) 34.4 %; MEAN CORPUSCULAR HEMOGLOBIN 32.6 pg (27.0-31.0); MEAN CORPUSCULAR HGB CONC 32.3 g/dL (32.0-36.0); MEAN CORPUSCULAR VOLUME 101.2 fL (81.0-99.0); MEAN PLATELET VOLUME 10.8 fL (7.9-10.8); MONOCYTES # (AUTO) 0.4 10^3/uL (0.0-1.0); MONOCYTES % (AUTO) 8.3 %; NEUTROPHILS # (AUTO) 2.8 10^3/uL (1.5-6.6); NEUTROPHILS % (AUTO) 54.1 %; PLT - PLATELET COUNT 232 10^3/uL (130-450); RED BLOOD COUNT 4.29 10^6/uL (4.20-5.40); RED CELL DISTRIBUTION WIDTH 11.9 % (12.0-15.0); WHITE BLOOD COUNT 5.1 x10^3/uL (4.8-10.8)
[2022-12-27 15:09] LABS: THYROID STIMULATING HORMONE 2.34 uIU/mL (0.34-5.60)
[2022-12-27 15:27] LABS: ALBUMIN 4.1 g/dL (3.2-5.5); ALBUMIN/GLOBULIN RATIO 1.4 (1.0-2.2); ALKALINE PHOSPHATASE 46 IU/L (42-121); ALT ALANINE AMINOTRANSFERASE 24 IU/L (10-60); AST ASPARTATE AMINOTRANSFERASE 24 IU/L (10-42); BILIRUBIN,TOTAL 0.8 mg/dL (0.2-1.0); BUN - BLOOD UREA NITROGEN 12 mg/dL (6-20); CARBON DIOXIDE - CO2 28 mmol/L (21-32); CHLORIDE 105 mmol/L (101-111); CHOL/HDL RATIO 2.8 (<4.4); CHOLESTEROL 196 mg/dL; CREATININE 0.7 mg/dL (0.4-1.0); GFR - MDRD 82 (>89); GLUCOSE 72 mg/dL (70-100); HDL CHOLESTEROL 70 mg/dL; LDL CHOLESTEROL,CALCULATED 106 mg/dL; LDL/HDL RATIO 1.5 (<4.4); SODIUM 140 mmol/L (135-145); TOTAL PROTEIN 7.1 g/dL (6.7-8.2); TRIGLYCERIDES 98 mg/dL; VLDL CHOLESTEROL 20 mg/dL
[2023-01-01 15:09] LABS: HCV RNA QUANTITATION HCV Not Detected IU/mL (.)
== END 2022-12-27 11:32 | disposition home or self-care (01) ==
LOC: LAB.S 11:31
PROVIDERS: ATTEND Internal Medicine
DX: Z00.00 Encounter for general adult medical examination without abnormal findings (principal); R53.83 Other fatigue; E78.5 Hyperlipidemia, unspecified; Z11.59 Encounter for screening for other viral diseases; K51.90 Ulcerative colitis, unspecified, without complications
CPT/HCPCS: 36415; 80053; 80061; 82306; 82607; 83721; 84443; 85025; 87522

== ENCOUNTER 2023-01-02 14:13 | Outpatient (CLI) | payer MEDICARE | END 2023-01-02 14:14 | disposition home or self-care (01) | LOC: LAB.S 14:13 | PROVIDERS: ATTEND Internal Medicine | DX: D75.89 Other specified diseases of blood and blood-forming organs (principal) | CPT/HCPCS: 36415; 82746 ==

== ENCOUNTER 2023-01-30 14:01 | Outpatient (CLI) | payer MEDICARE ==
--- NOTE | 2023-01-31 13:26 | Mammography Report ---
BILATERAL DIGITAL SCREENING MAMMOGRAM 3D/2D: 01/30/2023 CLINICAL: Routine screening. Family history of breast cancer. Comparison is made to exams dated: 02/05/2022 mammogram, 12/13/2020 mammogram, 11/16/2020 mammogram, an d 06/02/2019 mammogram - [facility]. Both breasts are heterogeneously dense, which may obscure small masses (category c / 51-75% glandular tissue). No significant masses, calcifications, or other findings are seen in either breast. There has been no significant interval change. IMPRESSION: NEGATIVE There is no mammographic evidence of malignancy. A 1 year screening mammogram is recommended. Based on the Tyrer Cuzick model (a risk assessment model) the patients lifetime risk is 15.7% and he r 10 year risk is 12.9%. According to the ACR, ACS, and NCCN guidelines, an annual breast MRI exam al teo with mammogram is recommended if the patients lifetime risk is 20% or greater. This exam was interpreted at Station ID: [id number]. NOTE: For mammograms, a report in lay terms will be sent to the patient. Approximately 15% of breast malignancies will not be visualized mammographically. In the management of a palpable breast mass, a negative mammogram must not discourage biopsy of a clinically suspicious lesion. Electronically Signed By: Moe jett/tony:01/30/2023 15:06:35 letter sent: No_Letter ACR BI-RADS Category 1: Negative 3341F PARENCHYMAL PATTERN: (D) - The breast(s) demonstrate(s) heterogeneously dense fibroglandular sapphire garduno. BI-RADS CATEGORY: (1) - 1 Mammogram [id number] 1 year screening LATERALITY: (B)
== END 2023-01-30 14:02 | disposition home or self-care (01) ==
LOC: DI.S 14:01
DX: Z12.31 Encounter for screening mammogram for malignant neoplasm of breast (principal); Z80.3 Family history of malignant neoplasm of breast

== ENCOUNTER 2023-06-29 15:53 | Outpatient (CLI) | payer MEDICARE | END 2023-06-29 15:54 | disposition critical access hospital (66) | LOC: EMS 15:53 | DX: R07.9 Chest pain, unspecified (principal); I10 Essential (primary) hypertension; F41.9 Anxiety disorder, unspecified | CPT/HCPCS: A0425; A0429 ==

== ENCOUNTER 2023-06-29 16:30 | Emergency (ER) | payer MEDICARE ==
[2023-06-29] MEDS ORDERED: SODIUM CHLORIDE 0.9% 1,000 ML IV STA (16:57)
--- NOTE | 2023-06-29 16:59 | ED Physician Documentation ---
PD HPI CHEST PAIN - Stated complaint Stated Complaint: CHEST DISCOMFORT - Chief complaint Chief Complaint: Cardiac - History obtained from History obtained from: Patient - History of Present Illness Timing - onset: How many days ago (4) Timing - onset during: Rest Timing - duration: Days (4) Timing - details: Abrupt onset, Now resolved Quality: Pressure Location: Substernal Radiation: Jaw, Neck Improved by: Other (time) Worsened by: Palpation Associated symptoms: Feeling faint / dizzy, General Weakness, Palpitations. No: Shortness of air, Diaphoresis, Nausea, Vomiting, Cough Similar symptoms before: No diagnosis Recently seen: Clinic - Additional information Additional information: Rosalba Espinoza is a 72-year-old female with a history of ulcerative colitis and a family history of familial breast cancer. She has tested negative for the genes associated with this but did take tamoxifen for about 4 years. She is come into the emergency department today with chief complaint of an episode of chest pain that she had 4 days ago. She was seen in the urgent care and had 2 elect rocardiograms done which were both reassuring. She is coming to the emergency department today with a chief complaint that she does not feel well she is having weakness. She drinks about a bottle of wine per day. She indicates that the pain she had 4 days ago was an episode with pressure behind the sternum radiating to her neck and jaw. She saw urgent care at the time of the incident and pain has mostly resolved but now she is feeling not well with low energy and weakness. Review of Systems Constitutional: denies: Fever Eyes: denies: Decreased vision Ears: denies: Ear pain Nose: denies: Rhinorrhea / runny nose, Congestion Throat: denies: Sore throat Cardiac: reports: Chest pain / pressure, Palpitations. denies: Pedal edema, Calf pain Respiratory: denies: Dyspnea, Cough, Wheezing GI: denies: Abdominal Pain, Nausea, Vomiting, Constipation, Diarrhea : denies: Dysuria, Frequency PD PAST MEDICAL HISTORY - Past Medical History Past Medical History: Yes Cardiovascular: High cholesterol Respiratory: None Endocrine/Autoimmune: HyPOthyroidism GI: Ulcerative colitis : None Psych: Depression, Anxiety, Panic attacks, Claustrophobia Musculoskeletal: Osteoarthritis Derm: None - Past Surgical History Past Surgical History: Yes General: Colonoscopy /SUPERVISOR LOADING: section - Present Medications Home Medications: Ambulatory Orders Medication Instructions Recorded Confirmed ALPRAZolam [Xanax] 0.5 mg PO ONCE PRN 10/26/13 06/05/17 Cholecalciferol (Vitamin D3) 2,000 unit PO DAILY 10/26/13 06/05/17 [Vitamin D-3] Citalopram [CeleXA] 20 mg PO DAILY 10/26/13 06/05/17 Levothyroxine [Synthroid] 0.25 mcg PO DAILY 10/26/13 06/05/17 Multivitamin [Multivitamins] 1 each PO DAILY 10/26/13 06/05/17 Tamoxifen [Nolvadex] 10 mg PO DAILY 06/04/17 06/05/17 Mesalamine [Asacol Hd] 2 BID 06/05/17 - Allergies Allergies/Adverse Reactions: Allergies Allergy/AdvReac Type Severity Reaction Status Date / Time Sulfa (Sulfonamide Allergy Intermediate Rash Verified 10/23/13 13:46 Antibiotics) Sensative to meds. AdvReac Intermediate Nausea Uncoded 10/23/13 13:47 - Social History Does the pt smoke?: No Smoking Status: Never smoker PD ED PE NORMAL - Vitals Vital signs reviewed: Yes (hypertensive ) - General General: Alert and oriented X 3, No acute distress, Well developed/nourished - HEENT HEENT: Atraumatic, PERRL, EOMI - Neck Neck: Supple, no meningeal sign, No bony TTP - Cardiac Cardiac: RRR, No murmur - Respiratory Respiratory: No respiratory distress, Clear bilaterally, Other (mild point tenderness along the margins of the sternum) - Abdomen Abdomen: Soft, Non tender - Back Back: No CVA TTP, No spinal TTP - Derm Derm: Normal color, Warm and dry, No rash - Extremities Extremities: No deformity, No edema - Neuro Neuro: Alert and oriented X 3, 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 Relevant findings are: Rate: Rate (enter#) (53) Rhythm: NSR Lutz: LAD (borderline) Ischemia: Normal ST segments Compare to prior EKG: Changed from prior EKG (SPT 02-19-2017 the rate is slower and the LAD has developed. ) Computer interpretation: Agree with computer - Labs Labs: Laboratory Tests 06/29/23 06/29/23 17:11 17:11 WBC 6.8 RBC 4.74 Hgb 15.5 Hct 48.3 H MCV 101.9 H MCH 32.7 H MCHC 32.1 RDW 11.5 L Plt Count 255 MPV 10.6 Neut # (Auto) 4.4 Lymph # (Auto) 1.7 [place] # (Auto) 0.5 Eos # (Auto) 0.2 Baso # (Auto) 0.1 Absolute Nucleated RBC 0.00 Nucleated RBC % 0.0 Sodium 140 Potassium 4.2 Chloride 104 Carbon Dioxide 27 Anion Gap 9.0 BUN 14 Creatinine 0.8 Estimated GFR (MDRD) 70 L Glucose 88 Calcium 9.9 Total Bilirubin 0.7 AST 20 ALT 23 Alkaline Phosphatase 63 Troponin I High Sens 3.2 Total Protein 7.5 Albumin 4.6 Globulin 2.9 Albumin/Globulin Ratio 1.6 Lipase 24 - Rads (name of study) chest Relevant Findings:: Prelim report reviewed (Impression: No acute cardiopulmonary process.), EMP independent interpretation of test, See rad report Procedures - IVC sono (time) 1650 Bedside IVC sono: IVC measures (cm) (0.89), IVC collapsed c insp (cm) (complete), Dehydration (est 2 liter deficit) PD Medical Decision Making - ED course Complexity details: reviewed old records, reviewed results, re-evaluated patient, considered differential Reviewed Lab Results: We reviewed a complete blood count showing a normal white blood cell count hemoglobin of 15.5 and an elevated hematocrit of 48.3. Platelet count was normal at 255. Chemistry showed normal electrolytes normal kidney and liver function and a normal high-sensitivity troponin at 3.2. There is a single abnormality in this blood work that corroborates the patient's diagnosis of dehydration. She has an elevated hematocrit and she normally runs at 43 and not 48. ED course: 72-year-old female with an episode of chest pain 4 days ago has some pressure and a negative workup. We did find she was significantly dehydrated and administered some saline with improvement. Departure - Departure Disposition: 01 Home, Self Care Clinical Impression: Atypical chest pain, Dehydration Condition: Stable Instructions: ED Chest Pain Atypical Unkn Cause, ED Dehydration Follow-Up: Beryl Clark MD [Primary Care Provider] - Comments: Rosalba today the workup we did showed a normal electrocardiogram, normal electrolytes, normal kidney and liver function, normal blood counts and a normal high-sensitivity troponin or measurement of damage to the heart. This makes the pain you have been having in your chest unlikely to be related in any way to a coronary syndrome. We did find that you are dehydrated and we have provided partial rehydration. My recommendation today is to drink an additional quart of water. Forms: PCP List Discharge Date/Time: 06/29/23 18:38
[2023-06-29 17:16] LABS: BASOPHILS # (AUTO) 0.1 10^3/uL (0.0-0.1); BASOPHILS % (AUTO) 0.7 %; EOSINOPHILS # (AUTO) 0.2 10^3/uL (0.0-0.7); EOSINOPHILS % (AUTO) 2.2 %; HCT - HEMATOCRIT 48.3 % (37.0-47.0); HGB - HEMOGLOBIN 15.5 g/dL (12.0-16.0); LYMPHOCYTES # (AUTO) 1.7 10^3/uL (1.5-3.5); LYMPHOCYTES % (AUTO) 24.7 %; MEAN CORPUSCULAR HEMOGLOBIN 32.7 pg (27.0-31.0); MEAN CORPUSCULAR HGB CONC 32.1 g/dL (32.0-36.0); MEAN CORPUSCULAR VOLUME 101.9 fL (81.0-99.0); MEAN PLATELET VOLUME 10.6 fL (7.9-10.8); MONOCYTES # (AUTO) 0.5 10^3/uL (0.0-1.0); MONOCYTES % (AUTO) 7.8 %; NEUTROPHILS # (AUTO) 4.4 10^3/uL (1.5-6.6); NEUTROPHILS % (AUTO) 64.2 %; PLT - PLATELET COUNT 255 10^3/uL (130-450); RED BLOOD COUNT 4.74 10^6/uL (4.20-5.40); RED CELL DISTRIBUTION WIDTH 11.5 % (12.0-15.0); WHITE BLOOD COUNT 6.8 x10^3/uL (4.8-10.8)
[2023-06-29 17:32] LABS: ALBUMIN 4.6 g/dL (3.2-5.5); ALBUMIN/GLOBULIN RATIO 1.6 (1.0-2.2); BILIRUBIN,TOTAL 0.7 mg/dL (0.2-1.0); CALCIUM 9.9 mg/dL (8.5-10.3); CREATININE 0.8 mg/dL (0.6-1.3); POTASSIUM 4.2 mmol/L (3.5-4.5); TOTAL PROTEIN 7.5 g/dL (6.4-8.9)
[2023-06-29 17:37] LABS: TROPONIN I HIGH SENSITIVITY 3.2 ng/L (2.3-14.8)
--- NOTE | 2023-06-29 17:46 | XRAY Report ---
PROCEDURE: Chest 1 View X-Ray INDICATIONS: chest pain TECHNIQUE: One view of the chest was acquired. COMPARISON: None. FINDINGS: Surgical changes and devices: None. Lungs and pleura: No pleural effusions or pneumothorax. Lungs are clear. Mediastinum: Mediastinal contours appear normal. Heart size is normal. Bones and chest wall: No suspicious bony lesions. Overlying soft tissues appear unremarkable. IMPRESSION: No acute cardiopulmonary process. Reviewed by: Tee Jaramillo MD on 06/29/2023 4:44 PM [facility] Approved by: Tee Jaramillo MD on 06/29/2023 4:44 PM [facility] Station ID: [id number]
[2023-06-29 18:44] VITALS: BP 128/105; O2SAT 100
== END 2023-06-29 18:38 | disposition home or self-care (01) ==
LOC: EDUNIT# → ED 16:30
DX: R07.89 Other chest pain (principal); E86.0 Dehydration; I10 Essential (primary) hypertension
CPT/HCPCS: 36415; 80053; 83690; 84484; 85025; 93005; 96360; 99284

== ENCOUNTER 2023-07-29 13:42 | Outpatient (CLI) | payer MEDICARE ==
[2023-07-29 19:57] LABS: BASOPHILS # (AUTO) 0.1 10^3/uL (0.0-0.1); BASOPHILS % (AUTO) 1.4 %; EOSINOPHILS # (AUTO) 0.2 10^3/uL (0.0-0.7); EOSINOPHILS % (AUTO) 3.2 %; HCT - HEMATOCRIT 43.7 % (37.0-47.0); HGB - HEMOGLOBIN 14.3 g/dL (12.0-16.0); LYMPHOCYTES # (AUTO) 1.8 10^3/uL (1.5-3.5); MEAN CORPUSCULAR HEMOGLOBIN 32.7 pg (27.0-31.0); MEAN CORPUSCULAR HGB CONC 32.7 g/dL (32.0-36.0); MEAN PLATELET VOLUME 10.7 fL (7.9-10.8); MONOCYTES # (AUTO) 0.6 10^3/uL (0.0-1.0); MONOCYTES % (AUTO) 9.3 %; NEUTROPHILS # (AUTO) 3.2 10^3/uL (1.5-6.6); NEUTROPHILS % (AUTO) 54.8 %; PLT - PLATELET COUNT 240 10^3/uL (130-450); RED BLOOD COUNT 4.37 10^6/uL (4.20-5.40); RED CELL DISTRIBUTION WIDTH 11.8 % (12.0-15.0); WHITE BLOOD COUNT 5.9 x10^3/uL (4.8-10.8)
[2023-07-29 20:08] LABS: CRP - C-REACTIVE PROTEIN < 0.5 mg/dL (<0.5); GAMMA GLUTAMYL TRANSPEPTIDASE 48 IU/L (9-64)
[2023-07-29 21:17] LABS: FERRITIN 125.9 ng/mL (11.0-306.8)
[2023-07-29 21:30] LABS: ESTIMATED AVERAGE GLUCOSE 100 mg/dL (70-100); HEMOGLOBIN A1c% 5.1 % (4.27-6.07)
[2023-08-01 16:09] LABS: ANTINUCLEAR ANTIBODIES IFA Positive (.)
== END 2023-07-29 13:43 | disposition home or self-care (01) ==
LOC: LAB.S 13:42
PROVIDERS: ATTEND Internal Medicine
DX: R53.83 Other fatigue (principal); M12.9 Arthropathy, unspecified; F10.10 Alcohol abuse, uncomplicated
CPT/HCPCS: 36415; 82728; 82977; 83036; 85025; 86038; 86140

== ENCOUNTER 2024-02-06 13:07 | Outpatient (CLI) | payer MEDICARE ==
[~2024-02-06 13:07] MED LIST changes: -GADOBUTROL 7.5 MMOL/7.5 ML VIAL ONE; +GADOTERATE MEGLUMINE 7.5 MMOL/15 ML VIAL ONE
[2024-02-06 13:41] LABS: CREATININE 0.8 mg/dL (0.6-1.3)
[2024-02-06] MEDS: GADOTERATE MEGLUMINE 7.5 MMOL/15 ML VIAL IVP ONE (15:30)
--- NOTE | 2024-02-07 09:26 | MRI Report ---
SCREENING BREAST MRI OF BOTH BREASTS: 02/06/2024 CLINICAL: High risk screening. Comparison is made to exams dated: 01/30/2023 mammogram, 02/05/2022 mammogram, 12/13/2020 ultrasound, mammogram, 11/16/2020 mammogram, and 05/18/2020 breast MRI - [facility]. PROCEDURE: Breast BL W/WO INDICATIONS: HIGH RISK BREAST CANCER SCREENING CONTRAST: CLARISCAN 12.0 ML TECHNIQUE: The patient was placed prone in a dedicated breast imaging coil. Precontrast axial STIR and 3D spoil ed GE without fat saturation sequences were obtained. Both before and after bolus injection of contr ast, sequential 1-minute axial 3D spoiled GE with fat saturation sequences for 3 time points, with pizano btraction images and maximum intensity projections (MIP's) generated. Delayed sagittal spoiled GE im ages with fat saturation were also obtained. Computer-aided detection, including computer algorithm analysis of MRI image data for lesion detectio n and characterization, pharmacokinetic analysis, with further physician review for interpretation, w as performed. FINDINGS: Image quality: Diagnostic There is minimal background parenchymal enhancement. The breasts are heterogeneously dense. Right breast: No suspicious mass, nonmass enhancement, or focus. There are postoperative changes in the right breast. Left breast: No suspicious mass, nonmass enhancement, or focus. Miscellaneous: No suspicious lymph nodes by size criteria within the field of view. No significant f indings seen in the partially visualized anterior chest or upper abdomen. IMPRESSION: NEGATIVE No suspicious findings in either breast. Recommend continued screening mammogram and supplemental MRI screening if clinically indicated. BIRADS 2 COMMENT: The imaging literature indicates that a negative contrast breast MRI examination has a high sensitivity and a moderate specificity for detecting and excluding invasive carcinomas to a detection threshold of 3-5 mm; nonetheless, appropriate clinical and mammographic follow-up are recommended. MRI is not sensitive for detecting DCIS (ductal carcinoma in situ) and may not detect large invasive neoplasms that show only minimal enhancement such as mucinous carcinoma. If there are suspicious leobardo cifications or clinically worrisome palpable masses, then biopsy should still be considered. Invasiv e neoplasms can be hidden by co-existent and benign enhancement caused by mastitis, hormone therapy e ffects, radiation therapy, , and recent biopsy or surgery. False positive examinations can occur in a number of circumstances, including breasts that have recently been subject to invasive pro cedures and those that contain atypical ductal hyperplasia, hormonally stimulated glandular tissue, f at necrosis, or radial scars. This exam was interpreted at Station ID: [id number]. Electronically Signed By: Yrn Vazquez M.D. lc/:02/06/2024 17:18:16 letter sent: No_Letter ACR BI-RADS Category 1: Negative 3341F BI-RADS CATEGORY: (1) - 1 Mammo and MR [id number] return to screening LATERALITY: (B)
== END 2024-02-06 13:08 | disposition home or self-care (01) ==
LOC: LAB 13:07
PROVIDERS: ATTEND Internal Medicine Hematology & Oncology
DX: Z12.39 Encounter for other screening for malignant neoplasm of breast (principal); R92.333 Mammographic heterogeneous density, bilateral breasts
CPT/HCPCS: 36415; 82565

== ENCOUNTER 2024-03-06 13:44 | Outpatient (CLI) | payer MEDICARE ==
[2024-03-06 20:14] LABS: BASOPHILS # (AUTO) 0.1 10^3/uL (0.0-0.1); BASOPHILS % (AUTO) 0.8 %; EOSINOPHILS # (AUTO) 0.2 10^3/uL (0.0-0.7); EOSINOPHILS % (AUTO) 3.2 %; HCT - HEMATOCRIT 43.8 % (37.0-47.0); LYMPHOCYTES # (AUTO) 1.8 10^3/uL (1.5-3.5); LYMPHOCYTES % (AUTO) 30.7 %; MEAN CORPUSCULAR HEMOGLOBIN 32.7 pg (27.0-31.0); MEAN CORPUSCULAR VOLUME 102.3 fL (81.0-99.0); MONOCYTES # (AUTO) 0.6 10^3/uL (0.0-1.0); MONOCYTES % (AUTO) 9.9 %; NEUTROPHILS # (AUTO) 3.3 10^3/uL (1.5-6.6); NEUTROPHILS % (AUTO) 54.9 %; PLT - PLATELET COUNT 261 10^3/uL (130-450); RED BLOOD COUNT 4.28 10^6/uL (4.20-5.40); RED CELL DISTRIBUTION WIDTH 12.4 % (12.0-15.0)
[2024-03-06 20:19] LABS: ALBUMIN 4.2 g/dL (3.2-5.5); ALBUMIN/GLOBULIN RATIO 1.8 (1.0-2.2); BILIRUBIN,TOTAL 0.7 mg/dL (0.2-1.0); CALCIUM 9.1 mg/dL (8.5-10.3); CREATININE 0.6 mg/dL (0.6-1.3); POTASSIUM 4.1 mmol/L (3.5-4.5); TOTAL PROTEIN 6.5 g/dL (6.4-8.9)
[2024-03-06 20:28] LABS: THYROID STIMULATING HORMONE 1.67 uIU/mL (0.34-5.60)
[2024-03-06 20:34] LABS: FERRITIN 97.1 ng/mL (11.0-306.8)
== END 2024-03-06 13:45 | disposition home or self-care (01) ==
LOC: LAB.S 13:44
PROVIDERS: ATTEND Internal Medicine
DX: R53.83 Other fatigue (principal)
CPT/HCPCS: 36415; 80053; 82728; 83540; 84443; 84466; 85025